=== PATIENT | female | born 1985 | race Caucasian/White ===

== ENCOUNTER 2019-06-21 16:25 | Inpatient (IN) | payer OTHER, SELFPAY ==
[2019-06-18 16:14] LABS: Hematocrit 45.6 % (37-47); Mean Corp Hgb Conc 32.9 g/dL (32-36); Mean Corpuscular Hgb 30.1 pg (27.0-32.0); Mean Corpuscular Volume 91.4 fL (81-99); Mean Platelet Vol. 9.5 fl (6.2-12.0); Platelet Count 373 K/mm3 (150-450); RBC Distribution Width CV 12.9 % (11.6-14.6); Red Blood Count 4.99 M/mm3 (4.2-5.4); White Blood Count 8.3 K/mm3 (4.4-11.0)
[2019-06-18 17:05] LABS: Anion Gap 8 (5-15); BUN 13 mg/dL (7-18); BUN/Creat Ratio 10.6 RATIO (10-20); Calcium,Total 9.2 mg/dL (8.5-10.1); Chloride 110 mmol/L (98-107); Creatinine, Serum 1.23 mg/dL (0.55-1.02); EST Glomerular Filtration Rate 53 mL/min (>60); Est Glom Filt Rate - Afr Amer 65 mL/min (>60); Glucose 84 mg/dL (74-106); Potassium 3.3 mmol/L (3.5-5.1); Sodium Level 141 mmol/L (136-145); Thyroid Stim Hormone (TSH) 2.92 uIU/mL (0.358-3.74)
--- NOTE | 2019-06-20 17:37 | HP.PCM_ITS ---
- Problem List (1) Menorrhagia Status: Acute (2) Pelvic pain Status: Acute (3) Fibroid uterus Status: Acute History Date of Admission: 06/21/19 History of this : This is a 34 year-old with a fibroid uterus, pelvic pain and menorrhagia. Pelvic US shows a fundal fibroid measuring about 7x6x9 cm in size. Patient declines medical management. Medical History: Medical History (Last Updated 06/20/19 @ 17:40 by Niharika Villavicencio DO) Anxiety F41.9 Depression F32.9 History of wisdom tooth extraction K08.409 Hypothyroid E03.9 Migraines G43.909 Obesity E66.9 Surgical History: Surgical History (Last Updated 06/20/19 @ 17:40 by Niharika Villavicencio DO) History of ERCP Z98.890 History of lymph node biopsy Z98.890 Hx laparoscopic cholecystectomy Z90.49 Hx of tonsillectomy Z90.89 Status post biopsy of kidney Z98.890 Allergies No Known Allergies Allergy (Verified 06/12/19 14:09) Home Medications: Home Medications Bupropion HCl [Wellbutrin Xl] 300 mg PO BID 06/12/19 Levothyroxine [Synthroid] 75 mcg PO DAILY 06/12/19 Pramipexole Di-HCl [Mirapex] 0.25 mg PO QHS 06/12/19 Sumatriptan Succinate [Imitrex] 100 mg PO .X1 PRN 06/12/19 Smoking Status: Light Smoker (<10/day) History Past Pregnancies: Past Pregnancies Delivery Date Name GA/ Weeks Outcome Route Wt Infant Sex Labor Length Anesthesia Delivery Location Provider FOB Review of Systems Constitutional: Denies: Chills, Fever Eyes: Denies: Blurred vision HEENT: Denies: Head Aches Cardiovascular: Denies: Chest Pain Respiratory: Denies: Cough, Shortness of Breath Gastrointestinal: Reports: Abdominal Pain. 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 After reviewed of r/b/a, patient desires to proceed with a hysterectomy. Discussed that the hysterectomy may not improve her pain and she understands this. Discussed possible need for laparotomy given size of fibroid, and she is okay with this.
[2019-06-21] VITALS (11 sets, daily range): BP systolic 89–138; BP diastolic 47–74; PULSE 64–93; RESP 16–18; TEMP 36.2–37.1; O2SAT 95–100; BMI 44.1
[2019-06-21] MEDS: dexAMETHasone 10 MG/ML Vial 8 MG IV (07:00)
[2019-06-21 08:26] LABS: Bedside Glucose 68 mg/dL (70-110)
[2019-06-21] MEDS: Celecoxib 200 MG Capsule 400 MG PO (08:41)
[2019-06-21 08:42] LABS: Internal QC Validated? YES +Cl - CLEAR BKGD; Pregnancy, Urine Negative Negative
[2019-06-21] MEDS: Acetaminophen 500 MG Tablet 1000 MG PO ×2 (08:42→17:51)
[2019-06-21] MEDS: Gabapentin 600 MG Tablet PO (08:42)
[2019-06-21] MEDS: Enoxaparin 40 MG/0.4 ML Syringe SC (08:43)
[2019-06-21] MEDS: Phenazopyridine 95 MG Tablet 190 MG PO (08:43)
[2019-06-21] MEDS: Magnesium Sulfate 4gm/100mL 4 GM/100 ML IV.SOLN. IV (08:58)
[2019-06-21] MEDS: Lactated Ringers 1,000 ML 40 ML IV (09:32)
--- NOTE | 2019-06-21 09:45 | HYST_PTH ---
PATIENT: OKSANA ROSALES LOC: [facility]3 U#:[id number] AGE/SX: 34/F ROOM: MS320 RE06/21/[address]: Dr. Niharika Villavicencio DO : 1985 BED: 1 DIS: 06/22/2019 SPEC #: [id number] RECD: 06/21/19 16:20 STATUS: OLVIN LEIGHTON #: [id number] JENISE: 06/21/19 09:[address]: Niharika Villavicencio DEPT: SURGICAL PATHOLOGY RECD BY: Fernando Hanson ENTERED: 06/22/19 09:32 SP TYPE: HYSTERECT OTHR DR: Dr. Alexander Crowley MD Tissues: Uterus, NOS Procedures: Surgery Specimen Level V HEADER OPERATION: ERAS, total lap hysterectomy, bilateral salpingectomy, cysto PRE-OP DIAGNOSIS: Menorrhagia, pelvic pain, fibroid uterus TISSUE SUBMITTED: Uterus, cervix, bilateral fallopian tubes and fibroid MICROSCOPIC DIAGNOSIS Uterus, cervix, bilateral fallopian tubes and fibroid, vaginal hysterectomy and bilateral salpingectomy: Cervix - mild chronic inflammation. Endometrium - proliferative endometrium. Myometrium - leiomyomas, intramural submucosal and subserosal (largest measuring 11 cm). - focal subserosal adenomysis. Bilateral fallopian tubes - no pathologic diagnosis. AMISH:brian 06/25/19 MICROSCOPIC DESCRIPTION Slides are reviewed. GROSS DESCRIPTION Received in fixative is one container labeled with the patient's name and designated uterus. The specimen consists of a uterus with attached cervix with detached fallopian tubes and a detached nodule. Uterus with the cervix weighs 80 g and measuring 8.5 x 6.5 x 4 cm. The ectocervix is oval in contour and free of mass lesions. The right and left fallopian tubes are not designated. Each fallopian tube has an average length of 5 cm in maximal diameter of 0.7 cm. Present free in the container is a large rubbery white-kauffman nodule resembling a fibroid and measuring 11 x 8 x 7 cm and weighing 292 gm. The endocervical canal measures 3 cm in length and is grossly unremarkable. The triangular endometrial cavity measures 3 x 2.5 cm. The velvety, reddish-kauffman endometrium measures up to 0.2 cm in thickness. The myometrium measures 2.2 cm in average thickness and is distorted by multiple rubbery nodules consistent with leiomyomas. These nodules are intramural,submucosal and subserosal in location and range in size from 1 cm to 4 cm in greatest dimension. The cut surfaces of all nodules display a whorled appearance without areas of cyst formation, necrosis, or hemorrhage. Studio Technician sections are submitted in 11 cassettes as follows: 1 - anterior cervix, 2 - posterior cervix, 3 & 4 - anterior uterine wall, 5 & 6 - posterior uterine wall, 7 - largest detached nodular mass, 8 - second largest myometrial mass, 9 - third largest myometrial mass, 10 - one fallopian tube, 11 - the other fallopian tube./AM:sp 06/22/19 TC: 1 CPT: 63662
[2019-06-21] MEDS: Lactated Ringers 1,000 ML 100 ML IV (11:01)
[2019-06-21] MEDS: Lactated Ringers 1,000 ML 70 ML IV ×2 (14:01→17:23)
--- NOTE | 2019-06-21 14:27 | OP.PCM_ITS ---
Problem List (1) Operative complication Status: Acute Qualifiers: Surgical complication system/body Area: digestive system Report of Operation Date of Procedure: 06/21/19 Pre-Operative Diagnosis: Intraoperative consult for possible tenaculum injury to the bowel Post-Operative Diagnosis: Minimal serosal tear anterior distal sigmoid Surgery/Procedure Performed:: Exploratory laparoscopy with laparoscopic serosal repair Description of Surgical Findings:: I was asked to see the patient intraoperatively per and Dr. Fontaine. A tenaculum had slipped off a uterine fibroid and then become lodged in an unknown area felt to be retroperitoneum. I was asked to assist with careful inspection of the retroperitoneum and bowel for possible injury. I performed laparoscopic exploration I ran the small bowel from the terminal ileum to the ligament of Treitz. I inspected both the ascending and descending colon. The transverse colon was in competent omentum and was not in the vicinity of potential injury. Upon inspection the only finding was a very small 7 mm anterior wall serosal tear of the anterior distal sigmoid. No evidence of any significant depth to this injury. I did the repair the area with a running 3-0 Vicryl suture. There was no evidence of any bowel spillage or succus. No evidence of any other potential adverse event. Copious irrigation was used for inspection. At this point I felt the risk for injury of significance was low. The patient will be kept n.p.o. with serial examination. I will continue to assist with her p ostoperative course and evaluation. Siddhartha Carranza M.D., F.A.C.S. Type of Anesthesia:: General
--- NOTE | 2019-06-21 16:27 | PCM.OPRPT ---
Problem List (1) Menorrhagia Status: Acute (2) Pelvic pain Status: Acute (3) Fibroid uterus Status: Acute Report of Operation Date of Procedure: 06/21/19 Pre-Operative Diagnosis: Pelvic pain, menorrhagia, fibroid uterus Post-Operative Diagnosis: As above Surgery/Procedure Performed:: TLH, BS, cysto, laparotomy. Repair of serosal injury to bowel by Dr. Carranza Description of Surgical Findings:: Uterus with multiple fibroids present. The largest fibroid was about 11 cm in size and it was anterior, serosal, and pedunculated on a large stalk. Normal-appearing bilateral fallopian tubes. Normal-appearing bilateral ovaries. Normal-appearing pelvis. plant pathologist: Lanny Don Type of Anesthesia:: General Specimen's removed: Uterus with fibroids, cervix, bilateral fallopian tubes Drains: De Jesus Estimated Blood Loss (mL): 400 cc Description of Procedure: Indications: Patient is a 34-year-old female who had presented to the emergency department with pelvic pain and menorrhagia. A CT scan, as well as a pelvic ultrasound, of her abdomen and pelvis showed an enlarged fibroid uterus. Medical management was discussed with the patient in the office, and she declined medical management. The patient requested definitive management with a hysterectomy after discussing all risks, benefits, and alternatives to the procedure. Procedure: Patient was taken to the operating room where general anesthesia was found to be adequate. She was prepped and draped in the dorsal lithotomy position using yellowfin stirrups in the usual sterile fashion. A De Jesus catheter was placed in the bladder. A weighted speculum was placed in the vagina and a right angle retractor was placed anteriorly to expose the cervix. The cervix was grasped with a single-tooth tenaculum. The introitus was noted to be very narrow. The vagina was also noted to be very narrow and long. The cervix was difficult to visualize given the narrow introitus and vagina. The cervix was serially dilated to accommodate a uterine manipulator. The weighted speculum and right angle retractor were removed from the vagina. Gloves were changed and attention was turned to the abdominal portion of the case. Local solution was used for infiltration of all port sites. A 5 mm supraumbilical port site was chosen, and an incision was made to accommodate the 5 mm port. The 5 mm port was inserted using the laparoscope under direct visualization. Once confirmed intraperitoneal, the peritoneal cavity was insufflated with CO2 gas. The patient was placed in Trendelenburg. Next a right lateral 5 mm port was placed. Followed by two 5 mm lateral ports along the patient's left side. Examination revealed no signs of injury from entry. The uterus was noted to have multiple fibroids present. The largest fibroid was about 11 cm in size and it was serosal, pedunculated, and coming off the anterior portion of the uterus. The bilateral fallopian tubes and ovaries appeared normal. The pelvis appeared normal. The large fibroid was removed from the uterus by serially clamping, cauterizing, and cutting along the pedicle. Hemostasis was noted. The fibroid was placed along the left side of the abdomen. Beginning on the right side, the round ligament was cauterized and transected. The fallopian tube was lifted towards the anterior abdominal wall to expose the mesosalpinx which was then serially clamped, cauterized, and cut hugging adjacent to the tube. Once the cornea was reached the tube was ligated and cut and removed from the abdomen. The utero-ovarian ligament was clamped, cauterized, and cut. Attention was turned to the other side and the same process was repeated on the left. Next the anterior leaf of the broad ligament was then taken down on the right side. The same process was then repeated on the left side so that both sides met. The anterior bladder flap was created. Both ovarian pedicles were noted to be hemostatic. Once the bladder was appropriately dissected, the uterine arteries were bilaterally clamped, cauterized, and ligated. The pedicles were hemostatic. At the level of the cup of the uterine manipulator, the vaginal vault was incised circumferentially with a monopolar hook. The right side where the vaginal vault was incised was noted to be bleeding. This bleeding was made hemostatic using both bipolar and monopolar cautery. The uterus, cervix, bilateral fallopian tubes were removed from the vagina. After discussion with Dr. Fontaine, it was felt that the fibroid likely was not able to be safely removed through the vagina given its size and the narrow vaginal opening. The end of the vaginal cuff was rolled, and given the long and narrow vagina visualization was difficult. The vaginal cuff was unrolled to incorporate the peritoneum. The vaginal cuff was closed using several [id number] sutures. A cystoscopy was performed noting a normal bladder and bilateral ureteral jets. Attention was then turned to the abdominal portion of the case. The abdomen was again insufflated with CO2 gas, and the pelvis was irrigated. Hemostasis was again noted. Not all of the posterior peritoneum was incorporated in the vaginal cuff closure, but it appeared hemostatic. A laparoscopic single-tooth tenaculum was then placed on the fibroid, which was then brought down to the lower pelvis. A mini laparotomy was then made 2 cm above the pubic bone. A scalpel was used to incise the skin, and the Bovie cautery was used to carry it down to the fascia. The fascia was then extended laterally. The fascia was then dissected off of the rectus muscles posteriorly and anteriorly. The rectus muscles were in the midline and the peritoneum was entered bluntly. Using the laparoscopic single-tooth tenaculum, the fibroid was brought down to the open incision. A towel clamp was placed on the fibroid. At this point it was noted that the single-tooth tenaculum had come off of the fibroid and was in the abdomen. The laparotomy was extended. The end of the single-tooth tenaculum was grasped with my hand and elevated to the opening of the incision. Once it was noted that there was nothing inside of the tenaculum, it was closed and removed from the abdomen. The fibroid was then removed from the abdomen and sent to pathology for review along with the uterus, cervix, and bilateral tubes. Given that the tenaculum had come off of the fibroid and opened in the abdomen, the decision was made to consult general surgery to run the bowel and assess for any injury caused by the tenaculum. Please see Dr. Guthrie's dictation for his portion of the case. The pelvis was then again irrigated and noted to be hemostatic. Kaiden was placed over the vaginal cuff, and focusing on the posterior peritoneum. Hemostasis was still noted after slowly exsufflating the abdomen. All instruments and were removed from the abdomen. The fascia of the laparotomy was closed with PDS in usual fashion. The subcutaneous layer was then closed with Vicryl. The skin was closed in a subcuticular fashion. The port sites were closed in a subcuticular fashion. Dressings were placed. All instruments were removed from the vagina and vaginal sweep was performed. The patient tolerated the procedure well and was taken to recovery room in stable condition. Grafts/Implants Used: None - Complications None - Admit VTE Documentation VTE Present on Admission: No VTE Mechan Device Prophylaxis: SCD's VTE Pharm Prophylaxis ordered?: No
[2019-06-21 19:16] LABS: Bedside Glucose 118 mg/dL (70-110)
[2019-06-21] MEDS: Docusate Sodium 100 MG Capsule PO (21:27)
[2019-06-21] MEDS: Pramipexole Di-HCl 0.25 MG Tablet PO (21:27)
[2019-06-22] MEDS: Acetaminophen 500 MG Tablet 1000 MG PO ×4 (01:32→17:52)
[2019-06-22 03:09] VITALS: BP 101/44; PULSE 103; RESP 18; TEMP 36.8; O2SAT 95
[2019-06-22 05:49] LABS: Hematocrit 34.7 % (37-47); Hemoglobin 11.3 g/dL (12.0-15.0); Mean Corp Hgb Conc 32.6 g/dL (32-36); Mean Corpuscular Hgb 29.6 pg (27.0-32.0); Mean Corpuscular Volume 90.8 fL (81-99); Mean Platelet Vol. 9.5 fl (6.2-12.0); Platelet Count 312 K/mm3 (150-450); RBC Distribution Width CV 12.9 % (11.6-14.6); RBC Distribution Width SD 42.3 fl (35.1-43.9); Red Blood Count 3.82 M/mm3 (4.2-5.4); White Blood Count 10.8 K/mm3 (4.4-11.0)
--- NOTE | 2019-06-22 06:03 | PCM.PN.SRG ---
Patient Problems: Active and Suspected Problems (Last Updated 06/20/19 @ 17:40 by Niharika Villavicencio DO) Operative complication (Acute) Subjective: Pt comfortable, no changes overnight, no flatus, no nausea - Physical Exam Vitals/I&O's: Vital Signs Temp Pulse Resp BP Pulse Ox 98.3 F 103 H 18 101/44 L 95 06/22/19 03:09 06/22/19 03:09 06/22/19 03:09 06/22/19 03:09 06/22/19 03:09 Oxygen Flow Rate (L/min) 6 Oxygen Delivery Method Room Air Weight: 273 lb 5.971 oz Body Mass Index (BMI) 44.1 Intake and Output for Last 24 Hours 06/20/19 06/21/19 06/22/19 23:59 23:59 23:59 Intake Total 3131.23 / 3331.23 200 / 200 Output Total 0 / 1800 1800 / 1800 Balance 3131.23 / 1531.23 -1600 / -1600 Lungs: Clear to auscultation Abdomen: Soft, Non Tender, Hypoactive Bowel Sounds Laboratory Results 06/21/19 08:10: Urine Test Negative 06/21/19 08:22: POC Glucose 68 L 06/21/19 08:25: Blood Type A POSITIVE, Antibody Screen NEGATIVE 06/21/19 19:04: POC Glucose 118 H 06/22/19 05:28: WBC 10.8, RBC 3.82 L, Hgb 11.3 L, Hct 34.7 L, MCV 90.8, MCH 29.6, MCHC 32.6, RDW Std Deviation 42.3, RDW Coeff of Gracia 12.9, Plt Count 312, MPV 9.5 06/22/19 05:28: Sodium Pending, Potassium Pending, Chloride Pending, Carbon Dioxide Pending, Anion Gap Pending, BUN Pending, Creatinine Pending, Est GFR (MDRD) Af Amer Pending, Est GFR (MDRD) Non-Af Pending, BUN/Creatinine Ratio Pending, Glucose Pending, Calcium Pending Current Medications Acetaminophen (Tylenol) 1,000 mg PO Q6 [facility] Last Admin: 06/22/19 01:32 Dose: 1,000 mg Documented by: Bupropion HCl (Wellbutrin Xl) 150 mg PO 0600,1800 [facility] Docusate Sodium (Colace) 100 mg PO BID [facility] Last Admin: 06/21/19 21:27 Dose: 100 mg Documented by: Hydromorphone HCl (Dilaudid Inj) 0.5 mg IV Q3H PRN PRN PRN Reason: Pain Score 6-10/10 Lactated Ringer's () 1,000 mls @ 40 mls/hr IV .Q25H [facility] Last Infusion: 06/21/19 14:00 Dose: Infused Documented by: Lactated Ringer's () 1,000 mls @ 70 mls/hr IV .[id number] [facility] Stop: 06/22/19 16:21 Last Admin: 06/21/19 17:23 Dose: 70 mls/hr Documented by: Sodium Chloride () 250 mls @ 15 mls/hr IV .[id number] PRN PRN Reason: Saline Flush Insulin Human Lispro (Humalog Kwikpen (Bkc)) 0 unit SC Q4H PRN PRN; Protocol PRN Reason: BG >/= 180, SEE PROTOCOL Levothyroxine Sodium (Synthroid) 75 mcg PO DAILY@0600 [facility] Magnesium Oxide (Mag-Ox 400) 400 mg PO DAILY PRN PRN PRN Reason: Constipation Ondansetron HCl (Zofran Odt) 4 mg PO Q6H PRN PRN PRN Reason: NAUSEA Oxycodone HCl (Oxyir) 5 - 10 mg PO Q4H PRN PRN PRN Reason: Pain Score 4-10/10 Pramipexole Dihydrochloride (Mirapex) 0.25 mg PO QHS [facility] Last Admin: 06/21/19 21:27 Dose: 0.25 mg Documented by: Sodium Chloride () 10 - 40 ml IV UD PRN PRN Reason: SALINE FLUSH Medical Necessity - Tobacco Use Smoking Status: Light Smoker (<10/day) Tobacco Use: Cigarettes Assessment/Plan All Active Problems (Last Updated 06/20/19 @ 17:40 by Niharika Villavicencio DO) Traumatic open wound of right lower leg with delayed healing (Acute) Traumatic open wound of right lower leg with infection (Acute) Menorrhagia (Acute) Pelvic pain (Acute) Fibroid uterus (Acute) Operative complication (Acute) At this point I am not anticipating any adverse events. WBC nl I will start clears just to facilitate comfort Will turn complete care back to Dr Villavicencio Please reconsult for any concerns but routine postop WIRE LATHER protocol should be good
[2019-06-22 06:07] LABS: Anion Gap 4 (5-15); BUN 14 mg/dL (7-18); BUN/Creat Ratio 12.5 RATIO (10-20); Chloride 110 mmol/L (98-107); Creatinine, Serum 1.12 mg/dL (0.55-1.02); EST Glomerular Filtration Rate 60 mL/min (>60); Est Glom Filt Rate - Afr Amer 72 mL/min (>60); Estimated Creatinine Clearance 66.88 ml/min; Glucose 88 mg/dL (74-106); Potassium 4.1 mmol/L (3.5-5.1); Sodium Level 139 mmol/L (136-145)
[2019-06-22] MEDS: Levothyroxine 75 MCG Tablet PO (06:33)
[2019-06-22] MEDS: buPROPion (XL) 150 MG TABLET.XL PO (06:33)
[2019-06-22] MEDS: Lactated Ringers 1,000 ML 70 ML IV (06:36)
[2019-06-22 07:17] VITALS: O2SAT 95
--- NOTE | 2019-06-22 07:49 | PN.OBGYN_ITS ---
Patient Problems: Active and Suspected Problems (Last Updated 06/20/19 @ 17:40 by Niharika Villavicencio DO) Operative complication (Acute) Subjective: Patient is doing well. Pain controlled with just Tylenol. She denies lightheadedness, chest pain, palpitations, shortness of breath, uncontrolled abdominal pain, leg pain. She has been up out of bed without difficulty. Hatfield still in place. - Physical Exam Vitals/I&O's: Vital Signs Temp Pulse Resp BP Pulse Ox 98.3 F 103 H 18 101/44 L 95 06/22/19 03:09 06/22/19 03:09 06/22/19 03:09 06/22/19 03:09 06/22/19 03:09 Oxygen Flow Rate (L/min) 6 Oxygen Delivery Method Room Air Weight: 273 lb 5.971 oz Body Mass Index (BMI) 44.1 Intake and Output for Last 24 Hours 06/20/19 06/21/19 06/22/19 23:59 23:59 23:59 Intake Total 3131.23 / 3331.23 1485.17 / 1485.17 Output Total 0 / 1800 1999 Balance 3131.23 / 1531.23 -514.83 / -514.83 General: Alert, No apparent distress HEENT: Atraumatic Abdomen: Soft, Non Tender, Non-Distended, - - Incision sites are c/d/i Extremities: No edema, No Calf Tenderness Skin: No rashes Neurological: Neuro grossly intact Psych/Mental Status: Normal Affect, Appropriate Laboratory Results 06/21/19 08:10: Urine Test Negative 06/21/19 08:22: POC Glucose 68 L 06/21/19 08:25: Blood Type A POSITIVE, Antibody Screen NEGATIVE 06/21/19 19:04: POC Glucose 118 H 06/22/19 05:28: WBC 10.8, RBC 3.82 L, Hgb 11.3 L, Hct 34.7 L, MCV 90.8, MCH 29.6, MCHC 32.6, RDW Std Deviation 42.3, RDW Coeff of Gracia 12.9, Plt Count 312, MPV 9.5 06/22/19 05:28: Sodium 139, Potassium 4.1, Chloride 110 H, Carbon Dioxide 25.0, Anion Gap 4 L, BUN 14, Creatinine 1.12 H, Estim Creat Clear Calc 66.88, Est GFR (MDRD) Af Amer 72, Est GFR (MDRD) Non-Af 60, BUN/Creatinine Ratio 12.5, Glucose 88, Calcium 8.0 L Current Medications Acetaminophen (Tylenol) 1,000 mg PO Q6 [facility] Last Admin: 06/22/19 06:33 Dose: 1,000 mg Documented by: Bupropion HCl (Wellbutrin Xl) 150 mg PO 0600,1800 [facility] Last Admin: 06/22/19 06:33 Dose: 150 mg Documented by: Docusate Sodium (Colace) 100 mg PO BID [facility] Last Admin: 06/21/19 21:27 Dose: 100 mg Documented by: Hydromorphone HCl (Dilaudid Inj) 0.5 mg IV Q3H PRN PRN PRN Reason: Pain Score 6-10/10 Lactated Ringer's () 1,000 mls @ 40 mls/hr IV .Q25H [facility] Last Infusion: 06/21/19 14:00 Dose: Infused Documented by: Lactated Ringer's () 1,000 mls @ 70 mls/hr IV .[id number] [facility] Stop: 06/22/19 16:21 Last Admin: 06/22/19 06:36 Dose: 70 mls/hr Documented by: Sodium Chloride () 250 mls @ 15 mls/hr IV .[id number] PRN PRN Reason: Saline Flush Insulin Human Lispro (Humalog Kwikpen (Bkc)) 0 unit SC Q4H PRN PRN; Protocol PRN Reason: BG >/= 180, SEE PROTOCOL Levothyroxine Sodium (Synthroid) 75 mcg PO DAILY@0600 [facility] Last Admin: 06/22/19 06:33 Dose: 75 mcg Documented by: Magnesium Oxide (Mag-Ox 400) 400 mg PO DAILY PRN PRN PRN Reason: Constipation Ondansetron HCl (Zofran Odt) 4 mg PO Q6H PRN PRN PRN Reason: NAUSEA Oxycodone HCl (Oxyir) 5 - 10 mg PO Q4H PRN PRN PRN Reason: Pain Score 4-10/10 Pramipexole Dihydrochloride (Mirapex) 0.25 mg PO QHS [facility] Last Admin: 12/05/19 21:27 Dose: 0.25 mg Documented by: Sodium Chloride () 10 - 40 ml IV UD PRN PRN Reason: SALINE FLUSH Medical Necessity - Tobacco Use Smoking Status: Light Smoker (<10/day) Tobacco Use: Cigarettes Assessment/Plan All Active Problems (Last Updated 06/20/19 @ 17:40 by Niharika Villavicencio, ) Traumatic open wound of right lower leg with delayed healing (Acute) Traumatic open wound of right lower leg with infection (Acute) Menorrhagia (Acute) Pelvic pain (Acute) Fibroid uterus (Acute) Operative complication (Acute) POD#1 s/p TLH, BS, cysto, laparotomy for fibroid removal, and laparoscopic repair of serosal injury to bowel by Dr. Carranza - HD stable - Labs stable this morning - Pain well controlled - D/c hatfield today as UOP as been adequate - Encourage ambulation today - Continue IS use - Tolerating clears this morning. Will transition to regular diet today - Dispo: Patient feels well and possibly ready for discharge later today
[2019-06-22] MEDS: Docusate Sodium 100 MG Capsule PO (08:13)
[2019-06-22 08:25] VITALS: BP 118/59; PULSE 70; RESP 14; TEMP 36.9; O2SAT 99
--- NOTE | 2019-06-22 11:50 | CASEMGMT ---
RN DONTE Face to Face with patient for initial transition planning/care coordination assessment. RN CM introduced self and role at [facility]. Patient sitting in chair, alert and oriented, parents at bedside. Patient willing to participate in assessment and is able to answer all questions appropriately. Care providers, pharmacy, and demographics verified. Patient wishes to discharge home, denies need for home health at this time. Patient states she has no further needs or concerns at this time. CM to follow for discharge planning needs that may arise. PCP: [facility] Specialists: [facility]: [facility] Insurance: R Prescription Benefit: yes Living Will/HPOA: none LNOK: , parents Living Arrangements: Patient lives with in 2nd floor apartment. Patient is independent at home. Transportation: self DME/HHC: Patient denies DME or HHC Disposition Plan: Patient to discharge home with family support and follow-up plans in place. Linda MICHAEL, RN, CM
[2019-06-22 14:00] VITALS: BP 110/52; PULSE 84; RESP 14; TEMP 36.8; O2SAT 98
--- NOTE | 2019-06-22 17:23 | DCINST_ITS ---
- Discharge Diagnoses Current Active Problems: Current Active and Chronic Problems (Last Updated 06/20/19 @ 17:40 by Niharika Villavicencio DO) Operative complication (Acute) You will use the following diet at home:: No restrictions, Regular Discharge Activity: May Not Drive, May Shower Return to work on:: 07/19/19 May shower in (days): 0 May resume sexual activity in: 6 weeks Ice area for (Minutes): 15 - as needed Weight Bearing Status: Weight bearing as tolerated Lifting Restrictions: Do not lift anything greater than 15-20 pounds Additional Activity Instructions:: The most important restrictions: No heavy lifting, no frequent bending over at the waist, nothing to be palced in the vagina including no tub baths or hot tubs Call your doctor if your incision/area has: Sudden Increased Bleeding, Increased Pain/ Swelling, Increased Redness, Foul Smelling Discharge, Swelling at the incision site Call your doctor if you observe: Fever of 101 or Higher, Inability to urinate, Inability to have a bowel movement, Using more than one pad per hour, Shortness of breath, Dizziness, Chest pain, Increased palpitations (irregular heartbeat), Calf discomfort, Uncontrolled pain Suture Line Care: Avoid Pinching/Bending Remove Dressing in (days):: 7 - Will remove in office Cleanse incision/area with: Soap & Water - It is okay to get the dressing wet, if it starts falling off it is ok to take off Instructions: Recovering from Hysterectomy Additional Instructions: Take Colace 100 mg by mouth twice daily to keep your bowel movements regular Allergies/Adverse Reactions: Allergies No Known Allergies Allergy (Verified 06/12/19 14:09) Medications to take at Discharge Bupropion HCl [Wellbutrin Xl] 150 mg PO BID 06/12/19 Levothyroxine [Synthroid] 75 mcg PO DAILY 06/12/19 Pramipexole Di-HCl [Mirapex] 0.25 mg PO QHS 06/12/19 Sumatriptan Succinate [Imitrex] 100 mg PO .X1 PRN 06/12/19 Orders to be completed after discharge: Basic Metabolic Profile (BMP) Time Frame: 06/12/19, Facility: [facility], Location: Laboratory CBC-Complete Blood Cnt No Diff Time Frame: 06/12/19, Facility: [facility], Location: Laboratory Thyroid Stim Hormone (TSH) Time Frame: 06/12/19, Facility: [facility], Location: Laboratory Primary Care Physician: Alexander Crowley [Primary Care Provider] - Test Results: Test results from this visit will be discussed in further detail at your follow- up appointment, if applicable. Please Follow Up With: Niharika Villavicencio, When: In 1 week and then in 6 weeks
[2019-06-22 17:40] VITALS: BP 130/58; PULSE 87; RESP 16; TEMP 36.8; O2SAT 96
== END 2019-06-22 18:00 | disposition home or self-care (01) | DRG 742 ==
LOC: MS3 16:47
PROVIDERS: Anesthesiology; Admitting Provider Obstetrics & Gynecology; Family Provider Internal Medicine Adolescent Medicine; PCP Internal Medicine Adolescent Medicine; Referring Provider Obstetrics & Gynecology; Visit Provider Obstetrics & Gynecology
PROC: 0UT9FZZ Resection of Uterus, Via Natural or Artificial Opening With Percutaneous Endoscopic Assistance (ICD-10-PCS; principal; 2019-06-21 09:20)
DX: D25.9 Leiomyoma of uterus, unspecified (principal); K91.72 Accidental puncture and laceration of a digestive system organ or structure during other procedure; Z68.41 Body mass index [BMI] 40.0-44.9, adult; R10.2 Pelvic and perineal pain; N92.0 Excessive and frequent menstruation with regular cycle; E03.9 Hypothyroidism, unspecified; E66.9 Obesity, unspecified
CPT/HCPCS: 36415; 80048; 81025; 82962; 84443; 85027; 86850; 86900; 86901; 88307; 99251; J7120; G0463; J2405